=== PATIENT | female | born 1945 | race American Indian/Alaskan Native ===

== ENCOUNTER 2021-05-04 08:15 | Outpatient (CLI) | payer MEDICARE ==
--- NOTE | 2021-05-04 14:57 | Vascular Lab Report ---
DUPLEX DOPPLER LOWER EXTREMITY VEINS, BILATERAL INDICATION / CLINICAL INFORMATION: BILATERAL PAIN OF LEG/FOOT. TECHNIQUE: Duplex doppler imaging was performed through the veins of both lower extremities using alberta ous compression and other maneuvers. Great and small saphenous veins were evaluated in the upright/re verse Trendelenburg positions. Valsalva technique was used to evaluate for venous insufficiency. COMPARISON: None available. FINDINGS: RIGHT LOWER EXTREMITY DVT (Y/N): No. LEFT LOWER EXTREMITY DVT (Y/N): No. RIGHT LOWER EXTREMITY : Great Saphenous Vein: Size (upright) & Reflux (Y/N) - Prox: 6 mm. Reflux = Y - Mid: 3 mm. Reflux = N - Dist: 2 mm. Reflux = N Small Saphenous Vein: Size (upright) & Reflux (Y/N) - Prox: 1 mm. Reflux = N - Mid: Not visualized. - Dist: Not visualized. LEFT LOWER EXTREMITY : Great Saphenous Vein: Size (upright) & Reflux (Y/N) - Prox: 6 mm. Reflux = N - Mid: 1 mm. Reflux = N - Dist: 1 mm. Reflux = N Small Saphenous Vein: Size (upright) & Reflux (Y/N) - Prox: 2 mm. Reflux = N - Mid: Not visualized. - Dist: Not visualized. Additional findings: None. IMPRESSION: 1. No sonographic evidence for DVT. 2. Mild reflux is noted within the right proximal greater saphenous vein. 3. Incidental finding of mild reflux within the deep veins bilaterally, specifically the right spring coiler hand al iliac vein and bilateral common femoral veins. Scribed by: Chrissie Martin RDMS, RVT Scribed: 05/04/2021 12:59 PM I have reviewed the images, agree with this report, and edited this report as needed. Signer Name: Fernando Humphries MD Signed: 05/04/2021 2:52 PM Workstation Name: [id number]
== END 2021-05-04 08:16 | disposition home or self-care (01) ==
LOC: VAS 08:15
PROVIDERS: ATTEND Internal Medicine
DX: M79.604 Pain in right leg (principal); M79.605 Pain in left leg; M79.671 Pain in right foot
CPT/HCPCS: 93970